=== PATIENT | male | born 1995 | race Caucasian/White ===

== ENCOUNTER 2019-01-11 20:10 | Emergency (ER) | payer BC ==
[~2019-01-11] VITALS: Ht 182.8 cm; Wt 127.9 kg
[~2019-01-11 20:10] MED LIST: CEPHALEXIN500 M1 PO; INTUNIV4 MG PO; Motrin,Rufen800 MG PO; TRAZADONE HYDR100 MG PO; TYLENOL W/CODEI1 TA4 PO; VYVANSE50 MG PO; VYVANSE70 MG PO
[2019-01-11 20:11] VITALS: BP 121/72
[2019-01-11 20:53] LABS: BASO % 0.4 % (0.0-1.0); EOS # 0.2 10*3/uL (0.0-0.4); EOS % 2.8 % (1.0-4.0); HEMATOCRIT 39.2 % (42.0-52.0); LYMPH % 29.7 % (27.0-41.0); MEAN CELL VOLUME 84.8 fl (80.0-94.0); MEAN CORPUSCULAR HGB 28.1 pg (27.0-31.0); MEAN CORPUSCULAR HGB CONC 33.2 g/dl (33.0-37.0); MEAN PLATELET VOLUME 11.2 fl (9.6-12.3); MONO # 0.7 10*3/uL (0.1-1.0); NEUT # 3.8 10*3/uL (2.3-7.9); PLATELET COUNT AUTOMATED 244 10*3/uL (130-400); RED BLOOD COUNT 4.62 10*6/uL (4.50-5.90); RED CELL DISTRI WIDTH 13.2 % (0-14.5); WHITE BLOOD COUNT 6.7 10*3/uL (4.8-10.8)
[2019-01-11 21:05] LABS: BUN 13 mg/dl (7-24); CHLORIDE 106 mmol/L (98-107); CREATININE 0.76 mg/dL (0.70-1.30); POTASSIUM 3.5 mmol/L (3.5-5.1); SODIUM 139 mmol/L (136-145)
[2019-01-11] MEDS ORDERED: MIRALAX119 GM PO (22:47)
== END 2019-01-11 22:49 ==
LOC: ED 20:10
PROVIDERS: Emergency Medicine Emergency Medical Services
DX: D64.9 Anemia, unspecified (principal); B36.0 Pityriasis versicolor; K62.5 Hemorrhage of anus and rectum; R19.7 Diarrhea, unspecified

== ENCOUNTER 2019-12-11 12:53 | Emergency (ER) | payer BC ==
[~2019-12-11] VITALS: Ht 177.8 cm; Wt 82.6 kg
[~2019-12-11 12:53] MED LIST changes: +MIRALAX119 GM PO
[2019-12-11 13:02] VITALS: BP 111/75
[2019-12-11] MEDS ORDERED: KEFLEX500 M1 PO (14:04)
== END 2019-12-11 14:07 | disposition home or self-care (01) ==
LOC: ED 12:53
DX: S69.91XA Unspecified injury of right wrist, hand and finger(s), initial encounter (principal); Z79.899 Other long term (current) drug therapy; W23.0XXA Caught, crushed, jammed, or pinched between moving objects, initial encounter; Y93.89 Activity, other specified; Y92.89 Other specified places as the place of occurrence of the external cause; Y99.8 Other external cause status

== ENCOUNTER 2022-12-14 18:03 | Emergency (ER) | payer SELFPAY ==
[~2022-12-14] VITALS: Ht 180.3 cm; Wt 120.2 kg
[~2022-12-14 18:03] MED LIST changes: +KEFLEX500 M1 PO
[2022-12-14 18:51] VITALS: BP 129/70
== END 2022-12-14 20:27 | disposition home or self-care (01) ==
LOC: ED 18:03
DX: B07.9 Viral wart, unspecified (principal); Z98.890 Other specified postprocedural states